=== PATIENT | male | born 2000 | race Caucasian/White ===

== ENCOUNTER 2023-09-16 08:06 | Emergency (ER) | payer BC, SELFPAY ==
--- NOTE | ~2023-09-16 | XR_ITS ---
EXAMINATION: XR foot RT min 3V DATE: 09/16/2023 08:36 INDICATION: Right foot pain. Injury. TECHNIQUE: 5 views of right foot were obtained. COMPARISON: None. FINDINGS: Bone alignment is normal. No fracture. Joint spaces are normal. IMPRESSION: 1. Normal right foot. Reviewed, dictated and finalized at location A. IMPRESSION: 1. Normal right foot.
--- NOTE | 2023-09-16 08:10 | ED.LOWEXIN ---
HPI - Extremity Injury (Lower) General Chief Complaint: Extremity Injury, Lower Stated Complaint: Injured Right Foot Time Seen by Provider: 09/16/23 08:12 Source: patient and RN notes reviewed Mode of arrival: ambulatory Limitations: no limitations History of Present Illness HPI Narrative: Patient is a 22-year-old male who presents to the [facility] with complaints of right foot pain. Patient states that he was wearing a belt containing 2- 45 lb weights and he accidentally dropped the belt on to his right foot. He reports pain to the medial aspect of the right foot. States that the pain is exacerbated with movement and ambulation. There is no notable swelling. Sensation is intact and he denies numbness. He is neurovascularly intact distally. Related Data Home Medications Medication Instructions Recorded Confirmed No Home Medications 09/16/23 09/16/23 Allergies Allergy/AdvReac Type Severity Reaction Status Date / Time No Known Allergies Allergy Verified 09/16/23 08:29 Review of Systems Review of Systems: CONSTITUTIONAL: Denies fever, chills, or sweats. EYES: Denies visual changes, redness, or discharge. ENT: Denies otalgia and sore throat CARDIOVASCULAR: Denies chest pain, palpitations, or edema. RESPIRATORY: Denies cough or dyspnea. GASTROINTESTINAL: Denies abdominal pain, nausea, vomiting, or diarrhea. GENITOURINARY: Denies dysuria or hematuria. SKIN: Denies rash or itching. MUSCULOSKELETAL: Denies back pain or myalgia. Reports right foot pain. NEUROLOGIC: Denies headache, numbness, or weakness. Pertinent positives per HPI. PMFSH Comments At the time of my signature, I reviewed and agree with the nursing past medical, surgical, social, and family history. There is no relevant family history pertinent to the patient complaint. Exam Narrative: GENERAL: This is a well-nourished, well-developed patient, in no apparent distress. HEAD: normocephalic, atraumatic. EYES: PERRL. Sclera clear/white. Vision is grossly intact. EARS: External ears normal, auditory canals clear and without drainage, TMs normal without perforation. Hearing grossly intact. NOSE: External nose normal with no obvious nasal discharge, nares without redness, no rhinorrhea. THROAT: Mucous membranes moist, posterior pharynx clear. NECK: Neck supple, non-tender without lymphadenopathy, masses or thyromegaly. CARDIOVASCULAR: Regular rate and rhythm without murmurs, gallops, or rubs. RESPIRATORY: Clear to auscultation. Breath sounds equal bilaterally. No wheezes, rales, or rhonchi. GASTROINTESTINAL: Abdomen soft, non-tender, nondistended. Bowel sounds are active. No hepato-splenomegaly, or palpable masses. No guarding. SKIN: warm, intact with no suspicious lesions or rash, good texture and turgor. NEURO: awake, alert, and oriented to person, place and time. There were no obvious focal neurologic abnormalities. EXTREMITIES: No clubbing, cyanosis, or edema. No effusion or edema noted. Right medial foot tenderness. Sensation intact. Neurovascularly intact. Distal motor intact. BACK: Nontender without deformity or crepitance. No flank tenderness. Course Course Level of Care: Express Care Visit Vital Signs Vital signs: Vital Signs Temperature 98.5 F 09/16/23 08:20 Pulse Rate 69 09/16/23 08:20 Respiratory Rate 16 09/16/23 08:20 Blood Pressure 133/73 09/16/23 08:20 Pulse Oximetry 100 09/16/23 08:20 Oxygen Delivery Room Air 09/16/23 08:20 Temperature 98.5 F 09/16/23 08:20 Pulse Rate 69 09/16/23 08:20 Respiratory Rate 16 09/16/23 08:20 Blood Pressure 133/73 09/16/23 08:20 Pulse Oximetry 100 09/16/23 08:20 Oxygen Delivery Room Air 09/16/23 08:20 Reviewed MDM - Extremity Injury (Lower) MDM Narrative Medical decision making narrative: Ice to the area 15-20 minutes 4-6 times a day for two to three days Minimize activities that aggravate the condition Elevate above heart as much as possible to re
[2023-09-16 08:20] VITALS: BP 133/73; PULSE 69; RESP 16; TEMP 36.9; O2SAT 100
== END 2023-09-16 08:49 | disposition home or self-care (01) ==
PROVIDERS: Emergency Provider Nurse Practitioner
DX: S90.31XA Contusion of right foot, initial encounter (principal); X50.0XXA Overexertion from strenuous movement or load, initial encounter
CPT/HCPCS: 73630; 99213; G0463

== ENCOUNTER 2024-02-24 18:52 | Emergency (ER) | payer BC, SELFPAY ==
--- NOTE | ~2024-02-24 | XR_ITS ---
EXAMINATION: XR shoulder LT min 2V DATE: 02/24/2024 19:03 INDICATION: Superior left shoulder pain TECHNIQUE: AP internally and externally rotated, AP oblique externally rotated and transscapular Y vi ews of the left shoulder were obtained. COMPARISON: None FINDINGS: Normal alignment. No fracture. Glenohumeral joint is normal. Acromioclavicular joint is normal. Soft tissues are unremarkable. Visualized portion of the lungs are clear. IMPRESSION: Negative left shoulder radiographs. Reviewed, dictated and finalized at location A.
[2024-02-24 18:54] VITALS: BP 139/80; PULSE 65; RESP 18; TEMP 36.6; O2SAT 100
--- NOTE | 2024-02-24 20:31 | ED.UPPEXIN ---
HPI - Extremity Injury (Upper) General Chief Complaint: Extremity Injury, Upper Stated Complaint: left shoulder injury Time Seen by Provider: 02/24/24 19:50 Source: patient Mode of arrival: ambulatory Limitations: no limitations History of Present Illness HPI narrative: Patient is a 23-year-old male who presents the ED with report of left shoulder pain. Patient reports having pain throughout his left shoulder since Saturday. He feels as though he strained his left shoulder while lifting on . He states he was lifting more than usual. He has been taking Aleve and Tylenol at home with minimal improvement. Denies numbness. Denies chest pain. Related Data Allergies Allergy/AdvReac Type Severity Reaction Status Date / Time No Known Allergies Allergy Verified 02/24/24 18:53 Review of Systems Review of Systems: All systems reviewed & are unremarkable except as noted in HPI. All systems reviewed & are unremarkable except as noted in HPI and below Exam Narrative: GENERAL: Well appearing, well-nourished, non-toxic, in no acute distress. HEAD: Normocephalic, atraumatic. RESPIRATORY: Airway patent, respirations nonlabored. CARDIOVASCULAR: Regular rate and rhythm MUSCULOSKELETAL: Moves all extremities. Essentially full ROM of L shoulder. Mild TTP over L anterior shoulder joint, lateral shoulder. Sensation intact. No swelling. No tenderness over heads of biceps. SKIN: Warm, dry, normal color. NEURO: A&O X3. Speech clear. Cranial nerves II-XII grossly intact. No ataxic movements. PSYCHIATRIC: Appropriate mood and affect. Normal interaction. Course Vital Signs Vital signs: Vital Signs Temperature 97.9 F 02/24/24 18:54 Pulse Rate 65 02/24/24 18:54 Respiratory Rate 18 02/24/24 18:54 Blood Pressure 139/80 02/24/24 18:54 Pulse Oximetry 100 02/24/24 18:54 Oxygen Delivery Room Air 02/24/24 18:54 Temperature 97.9 F 02/24/24 18:54 Pulse Rate 64 02/24/24 20:48 Respiratory Rate 18 02/24/24 20:48 Blood Pressure 118/64 02/24/24 20:48 Pulse Oximetry 98 02/24/24 20:48 Oxygen Delivery Room Air 02/24/24 18:54 MDM - Extremity Injury (Upper) MDM Narrative Medical decision making narrative: Patient presented to ED with several day history of left shoulder pain after weightlifting. Patient?s injury is consistent with musculoskeletal etiology. No signs of neurologic or vascular compromise on physical examination. Compartments are soft without signs of compartment syndrome. XR of left shoulder negative for acute osseous abnormality. Pain is consistent with muscle strain. Discussed possibility of rotator cuff injury. Patient is felt to be stable for discharge home and further outpatient management and treatment. Will prescribe a few doses of muscle relaxers and lidocaine patches for home. Offered sling, however patient declined. Advised to continue rice therapy, limit heavy lifting, follow-up with orthopedics for further evaluation if needed. Given return precautions. Discharged in stable condition. Medical Records Attestation: I reviewed the patient's medical records. Imaging Data Attestation: I personally reviewed and interpreted this imaging study as follows: Radiologist's impression: ITS Impressions Shoulder X-Ray 02/24/24 19:05 IMPRESSION: Negative left shoulder radiographs. Discharge Plan Discharge Clinical Impression: Strain of left shoulder Qualifiers: Encounter type: initial encounter Qualified Code(s): S46.912A - Strain of unspecified muscle, fascia and tendon at shoulder and upper arm level, left arm, initial encounter Patient Disposition: Home, Self-Care Condition: Stable Instructions: Antibiotic Form, Rotator Cuff Injury (ED), Shoulder Sprain (ED) Additional Instructions: Continue Tylenol and Ibuprofen/Aleve as needed for pain. You may use ice/heat, lidocaine patches to area of pain. Take muscle relaxers as needed and prescribed
[2024-02-24 20:48] VITALS: BP 118/64; PULSE 64; RESP 18; O2SAT 98
[2024-02-24] MEDS: KETOROLAC (*BKC) 60 MG/2 ML VIAL IM (20:48)
== END 2024-02-24 20:56 | disposition home or self-care (01) ==
PROVIDERS: Emergency Provider Physician Assistant
DX: S46.912A Strain of unspecified muscle, fascia and tendon at shoulder and upper arm level, left arm, initial encounter (principal); X50.0XXA Overexertion from strenuous movement or load, initial encounter
CPT/HCPCS: 73030; 96372; 99283; J1885

== ENCOUNTER 2024-10-19 15:42 | Emergency (ER) | payer BC, SELFPAY ==
[2024-10-19 15:43] VITALS: BP 154/64; PULSE 98; RESP 20; TEMP 36.5; O2SAT 100
--- OUTSIDE RECORDS SUMMARY | 2024-10-19 16:45 | XMS_ITS | Continuity of Care Document ---
Author Organization [facility] actice Address [address] [place] [address] Phone Care Team Providers Care Federal Air Marshal Name Role Phone Geneva [facility], Justin Unavailable Unava ilable Medications Medication Instructions Dosage Effective Dates (start - stop) Status Comments baclofen 10 mg tablet take 1/2-1 tablet PO tid prn for muscular pain - Active diclofenac 1 % topical gel apply 2 gram by topical route 3 times every day to the affected area(s) prn for pain - Active prednisone 10 mg tablet take 2 tabs PO QD x 2days, 1 tab x2days, 1/2 tab x 2days. - No Longer Active Procedures Procedure Date X-ray exam Lumbosacral spine 2-3 views D Office/outpatient visit,new, low 2021 Toradol inj 15mg THER/PROPH/DIAG INJ, SC/IM Dexa sodium phos, 1mg THER/PROPH/DIAG INJ, SC/IM Advance Directives Directive Yes / No Effective Date File Name No Information Encounters Encounter Description Practice Location Reason(s) For Visit Diagnoses Date Provider Providers Copied on Encounter [facility], [address], [place], [place], [id number], [place] tel:[phone] [facility] No Information Geneva Anderson. [address] [place], [place] [address], [address] [place] [address], [id number], . tel:[phone] Referring Provider: Kelsie Bess, [address] [place] [address], [id number]. tel:[phone] Office/outpa tient visit,[facility], [address] [place], [place] [address] [address] [place] [address], [address] [place] [address], tel:[phone] [facility] pain (chief complaint) Low back pain, unspecifiedF all, initial encounter 2 Miranda Iglesias. [address] [place] [address], [id number], . tel:[phone] Referring Provider: Kelsie Bess, [address] [place] [address], [id number]. tel:[phone] Family History Family Member Type Diagnosis Age At Onset No Information Payers Payer name Insurance type Covered green party ID Leslee mcneil(s) Duane [id number] Social History Type Description Quantity Date Captured Comments Sex Male Smoking Status No Information Chief Complaint And Reason For Visit No Information Reason For Referral Reason For Referral No Information Plan Of Treatment Date Type Action Status Goal FOBT. Due on due Goal CT-Colonography. Due on due Goal Flu Vaccine (18 to 64). Due on due Goal Depression screening. Due on due Goal Hepatitis C screening. Due o n due Goal FIT. Due on due Goal FIT-DNA. Due on due Goal Unhealthy drug use screening . Due on due Goal Td vaccine. Due on due Goal Sigmoidoscopy. Due on due Goal HPV (1st). Due on due Goal Colonoscopy. Due on 022 due Goal Fluoride varnish application . Due on due Goal Tdap. Due on due History Of Present Illness Encounter Date Complaint History Of Prese nt Illness back pain Onset: 30 minute s ago. Location of pain is lower back. Context: hard fall. Functional Status Date Functional Assessmen t No Information Instructions Date Instruction Additional Infor mation No Information Assessments Type Assessment Date No Information Patient Care Teams Name Effective Dates (start - stop) Status Members No Information
[2024-10-19 17:34] VITALS: BP 134/73; PULSE 62; RESP 15; O2SAT 100
[2024-10-19 17:41] VITALS: BP 134/73; PULSE 53; RESP 16; TEMP 36.7; O2SAT 98
[2024-10-19 17:46] VITALS: BP 123/70; PULSE 62; RESP 12; O2SAT 98
[2024-10-19] MEDS: DICYCLOMINE HCL 10 MG CAPSULE 20 MG PO (17:51)
[2024-10-19 17:53] LABS: Basophils Absolute Auto 0.1 K/mm3 (0.0-0.1); Basophils Percent Auto 0.6 % (0.2-1.2); Eosinophils Absolute Auto 0.5 K/mm3 (0-0.3); Eosinophils Percent Auto 5.4 % (0-4.4); Hematocrit 45.7 % (42.0-52.0); Hemoglobin 15.8 g/dL (14.0-18.0); Immature Granulocyte Absolute 0.02 K/mm3 (0.00-0.031); Immature Granulocyte Percent A 0.2 % (0-0.5); Lymphocytes Absolute Auto 3.08 K/mm3 (0.9-3.2); Lymphocytes Percent Auto 34.4 % (18.3-44.2); Mean Corpuscular HGB Conc 34.6 g/dl (32-36); Mean Corpuscular Hemoglobin 31.3 pg (26-34); Mean Corpuscular Volume 90.7 fl (80-100); Mean Platelet Volume 7.9 fl (7.4-10.4); Monocytes Absolute Auto 0.8 K/mm3 (0.1-0.6); Monocytes Percent Auto 8.4 % (2.6-8.5); Neutrophils Absolute Auto 4.6 K/mm3 (1.3-6.7); Platelet Count Result 200 k/mm3 (150-375); Red Blood Count 5.04 M/mm3 (4.6-6.20)
[2024-10-19] MEDS: LACTATED RINGERS 1,000 ML 999 ML IV CONT (17:53)
[2024-10-19] MEDS: ONDANSETRON INJ 4 MG/2 ML VIAL IV PUSH (17:53)
--- OUTSIDE RECORDS SUMMARY | 2024-10-19 17:55 | XMS_ITS | Continuity of Care Document ---
Author Organization [facility]ice Address [address] [facility] [address] [place] [address] Phone Care Team Providers Care Bureau Chief Name Role Phone Geneva [facility], Justin Unavailable Unava ilable Medications Medication [...] Diagnoses Date Provider Providers Copied on Encounter [facility], [address] [facility] [address], [place], [place], [id number], [place] tel:[phone] [facility] No Information Geneva Anderson. [address] [place] [address], [address] [place] [address], [address] [place] [address], . tel:[phone] Referring Provider: Kelsie Bess, [address] [place] [address], [id number]. tel:[phone] Office/outpa tient visit,[facility], [address] [place], [place] [address] [address] [place] [address], [address] [place] [address], tel:[phone] [facility] back pain (chief complaint) Low back pain, unspecifiedF all, initial encounter 2 Miranda Iglesias. [address] [place] [address], [address] [place] [address], . tel:[phone] Referring Provider: Kelsie Bess, [address] [place] [address], [id number]. tel:[phone] Family History Family Member Type Diagnosis Age At Onset No Information Payers Payer name Insurance type Covered democrat ID Authorevangelina mcneil(s) Duane DANIEL [id number] Social History Type Description Quantity Date Captured Comments Sex Male Smoking Status No Information Chief Complaint And Reason For Visit No Information Reason For Referral Reason For Referral No Information Plan Of Treatment Date Type Action Status Goal Tdap. Due on due Goal Fluoride varnish application . Due on due Goal Colonoscopy. Due on 022 due Goal HPV (1st). Due on 2 due Goal Sigmoidoscopy. Due on due Goal Td vaccine. Due on 22 due Goal Unhealthy drug use screening . Due on due Goal FIT-DNA. Due on due Goal FIT. Due on due Goal Hepatitis C screening. Due o n due Goal Depression screening. Due on due Goal Flu Vaccine (18 to 64). Due on due Goal CT-Colonography. Due on due Goal FOBT. Due on due History Of Present Illness [...]
[2024-10-19 18:11] LABS: Alanine Aminotransferase 41 U/L (6-50); Albumin Level 4.7 g/dL (3.5-5.1); Alkaline Phosphatase 79 U/L (38-126); Anion Gap 11 mmol/L (4-12); Aspartate Amino Transferase 44 U/L (17-59); Bilirubin,Total 0.5 mg/dL (0.2-1.3); Blood Urea Nitrogen 19 mg/dL (9-20); Calcium 9.6 mg/dL (8.4-10.2); Carbon Dioxide 26 mmol/L (22-30); Chloride 101 mmol/L (98-107); Estimated CRCL calculation 95 ml/min; Estimated Glomerular Filt Rate > 60; Glucose 64 mg/dL (65-110); Lipase 334 U/L (23-300); Potassium 3.6 mmol/L (3.4-5.0); Sodium 138 mmol/L (137-145); Total Protein 7.8 g/dL (6.3-8.2)
[2024-10-19 18:16] VITALS: BP 110/65; PULSE 53; RESP 14; O2SAT 100
--- NOTE | 2024-10-19 18:21 | ED_ITS ---
HPI - Nausea/Vomiting/Diarrhea General Chief complaint: Nausea/Vomiting/Diarrhea Stated complaint: i threw up twice Time Seen by Provider: 10/19/24 17:30 History of Present Illness HPI Narrative: 23-year-old otherwise healthy male presenting to the emergency department for vomiting twice this morning. He states he had some minor abdominal cramping and vomited 2 times. States that he vomits monthly and is concerned he might have some celiac disease as he has a family history. Patient denies any trauma or injury. No fever, chills, back pain, dysuria, hematuria. He was otherwise in his normal state of health. Tolerating oral intake without difficulty. Has not vomited for last 6 hours but want to make sure he was okay so he came to the ER. Not from the area and recently moved from [place]. Does not have a primary care provider. Related Data Allergies Allergy/AdvReac Type Severity Reaction Status Date / Time No Known Allergies Allergy Verified 10/19/24 17:37 Review of Systems 2 Review of Systems: As reviewed above in HPI Exam 2 Narrative: GENERAL: [Well-appearing, well-nourished, and in no acute distress.] HEAD: [Normocephalic, atraumatic.] EYES: [PERRLA and EOMI.] ENT: Nares clear, no rhinorrhea or epistaxis. Mucous membranes moist. NECK: Supple. CHEST: [Clear to auscultation. No respiratory distress.] HEART: [Regular rate and rhythm]. No murmur heard. [Normal peripheral pulses.] ABDOMEN: [Soft, nondistended], [nontender], [No rigidity or guarding] EXTREMITIES: Normal range of motion. [No edema.] SKIN: Warm, dry, no rash. NEURO: [No focal deficits]. Alert and oriented [x3.] PSYCH: [Normal mood and affect.] Course Vital Signs Vital signs: Vital Signs Temperature 36.5 C 10/19/24 15:43 Pulse Rate 98 10/19/24 15:43 Respiratory Rate 20 10/19/24 15:43 Blood Pressure 154/64 H 10/19/24 15:43 Pulse Oximetry 100 10/19/24 15:43 Oxygen Delivery Room Air 10/19/24 15:43 Temperature 36.7 C 10/19/24 17:41 Pulse Rate 62 10/19/24 17:46 Respiratory Rate 12 10/19/24 17:46 Blood Pressure 123/70 10/19/24 17:46 Pulse Oximetry 98 10/19/24 17:46 Oxygen Delivery Room Air 10/19/24 17:41 MDM - Nausea/Vomiting/Diarrhea MDM Narrative Medical decision making narrative: 23-year-old otherwise healthy male presenting with 2 episodes of nauseousness and vomiting this morning. He has been stable for 6 hours and has not nauseous or vomited since then. He had minor abdominal cramping prior to vomiting. He has a reassuring examination was soft nontender nondistended abdomen. Vital signs are all normal without any tachycardia, fever, hypoxia. He is well- appearing. Suspect gastroenteritis or stomach virus rather than acute intra- abdominal infection or process such as appendicitis or cholecystitis. Possibility of food poisoning as well. He has not vomited since this morning which is a reassuring sign. He was given Bentyl Zofran fluids and laboratory studies were obtained. His laboratory studies do not show any leukocytosis or anemia. Electrolytes are all normal, normal renal function, glucose 64 and provided food here in the emergency department. He is asymptomatic from this. Mildly elevated lipase likely from vomiting. No history of pancreatitis and has a soft abdomen and is tolerating oral intake. Patient is safe for discharge at this time will be given Zofran and Bentyl as needed. Provided PCP follow-up appointment. Medical Records Attestation: I reviewed the patient's medical records. Lab Data Attestation: I reviewed the patient's lab results. 10/19/24 17:39 10/19/24 17:39 Labs: Lab Results 10/19/24 Range/Units 17:39 WBC 9.0 (4.5-10.0) K/mm3 RBC 5.04 (4.6-6.20) M/mm3 Hgb 15.8 (14.0-18.0) g/dL Hct 45.7 (42.0-52.0) % MCV 90.7 (80-100) fl MCH 31.3 (26-34) pg MCHC 34.6 (32-36) g/dl RDW 12.0 (11.5-14.5) % Plt Count 200 (150-375) k/mm3 MPV 7.9 (7.4-10.4) fl Immature Gran % (Auto) 0.2 (0-0.5) % Neut % (Auto) 51.0 (45.5-73.1) % Lymph % (Auto) 34.4 (18.3-44.2) % [place] % (Auto) 8.4 (2.6-8.5) % Eos % (Auto) 5.4 H (0-4.4) % Baso % (Auto) 0.6 (0.2-1.2) % Lymph # (Auto) 3.08 (0.9-3.2) K/mm3 [place] # (Auto) 0.8 H (0.1-0.6) K/mm3 Eos # (Auto) 0.5 H (0-0.3) K/mm3 Baso # (Auto) 0.1 (0.0-0.1) K/mm3 Abs Immat Gran (auto) 0.02 (0.00-0.031) K/mm3 Absolute Neuts (auto) 4.6 (1.3-6.7) K/mm3 Absolute Nucleated RBC 0.000 (0.0-0.012) K/mm3 Nucleated RBC % 0.0 (0.0-0.2) % Sodium 138 (137-145) mmol/L Potassium 3.6 (3.4-5.0) mmol/L Chloride 101 (98-107) mmol/L Carbon Dioxide 26 (22-30) mmol/L Anion Gap 11 (4-12) mmol/L BUN 19 (9-20) mg/dL Creatinine 1.16 (0.7-1.3) mg/dL Estim Creat Clear Calc 95 ml/min Estimated GFR > 60 (59 - ) Glucose 64 L (65-110) mg/dL Calcium 9.6 (8.4-10.2) mg/dL Total Bilirubin 0.5 (0.2-1.3) mg/dL AST 44 (17-59) U/L ALT 41 (6-50) U/L Alkaline Phosphatase 79 (38-126) U/L Total Protein 7.8 (6.3-8.2) g/dL Albumin 4.7 (3.5-5.1) g/dL Lipase 334 H (23-300) U/L Discharge Plan Discharge Clinical Impression: Mild nausea and vomiting, Gastroenteritis Patient Disposition: Home Condition: Stable Instructions: Antibiotic Form, Gastroenteritis (ED), Acute Nausea and Vomiting (ED) Additional Instructions: Your laboratory studies are reassuring, no signs of infection or acute illness. We will send you home with some Young and Niki which could help symptoms of gastroenteritis or food related nausea and vomiting. Return with any emergencies otherwise follow-up with a primary care provider. Patient Language: Kyrgyz Prescriptions: New dicyclomine 20 mg tablet 20 mg PO TID PRN (Reason: abdominal pain) Qty: 14 0RF ondansetron 4 mg tablet,disintegrating 4 mg PO Q8H PRN (Reason: nausea and vomiting) Qty: 10 0RF No Action lidocaine 5 % adhesive patch,medicated 1 patch topical DAILY Qty: 15 0RF Rx Instructions: leave on most painful area for up to 12 hrs cyclobenzaprine 5 mg tablet 5 mg PO TID PRN (Reason: muscle spasm) Qty: 10 0RF Follow-up/Referrals: PHYSICIAN,[facility] [Primary Care Provider] - Silas Warren MD [Physician] - 1 Week (PCP establish care) Time of Disposition: 18:25
== END 2024-10-19 18:46 | disposition home or self-care (01) ==
PROVIDERS: Emergency Provider Student in an Organized Health Care Education/Training Program
DX: K52.9 Noninfective gastroenteritis and colitis, unspecified (principal)
CPT/HCPCS: 36415; 80053; 83690; 85025; 96361; 96374; 99284; A9270; J2405; J7120